=== PATIENT | female | born 1940 | race Caucasian/White ===

== ENCOUNTER 2017-10-18 08:23 | Day surgery (SDC) | payer MEDICARE, OTHER ==
[~2017-10-18 08:23] MED LIST: LIDOCAINE 1% PF 2 ML VIAL. ID; MORPHINE SULFATE 2 MG/ML DISP.SYRIN. IV; ONDANSETRON PF 4 MG/2 ML VIAL. IV; PROCHLORPERAZINE 10 MG/2 ML VIAL. IV; fentaNYL PF VIAL 100 MCG/2 ML VIAL IV
[2017-10-18] MEDS: IV RINGERS,LACTATED 1000ML 1,000 ML IV (09:15)
[2017-10-18] MEDS ORDERED: PROPOFOL 20 ML IV (09:16)
[2017-10-18] MEDS ORDERED: FAMOTIDINE 20 MG/2 ML VIAL (09:16)
[2017-10-18] MEDS ORDERED: LIDOCAINE 2% PF Vial for OR 5 ML VIAL. (09:16)
[2017-10-18] MEDS ORDERED: ONDANSETRON PF 4 MG/2 ML VIAL. (09:16)
[2017-10-18] MEDS ORDERED: DEXAMETHASONE SOD PHOS 20 MG/5 ML VIAL. (09:16)
[2017-10-18] MEDS ORDERED: fentaNYL PF VIAL 100 MCG/2 ML VIAL (09:16)
[2017-10-18] MEDS ORDERED: ROCURONIUM 50 MG/5 ML VIAL. (09:16)
[2017-10-18] MEDS ORDERED: NEOSTIGMINE METHYLSULFATE 5 MG/5 ML SYRINGE. (11:32)
[2017-10-18] MEDS ORDERED: GLYCOPYRROLATE 1 MG/5 ML VIAL. (11:32)
[2017-10-18] MEDS: BUPIVACAINE-EPI 0.25%-1:200000 50 ML VIAL. (11:39)
[2017-10-18] MEDS ORDERED: DESFLURANE 61 TO 120 MINUTES IH (11:45)
[2017-10-18] MEDS ORDERED: ceFAZolin 2GM PREMIX 2 GM/50 ML BAG IV (12:00)
[2017-10-18] MEDS: ALBUTEROL SULFATE 2.5 MG/3 ML NEBU. NEB (13:05)
[2017-10-18] MEDS: HYDROcodone/APAP 7.5/325MG 1 TAB TABLET PO (14:30)
== END 2017-10-18 14:45 | disposition home or self-care (01) ==
LOC: SURG 08:23
DX: M70.62 Trochanteric bursitis, left hip (principal); E78.00 Pure hypercholesterolemia, unspecified; I10 Essential (primary) hypertension; Z90.49 Acquired absence of other specified parts of digestive tract; M16.12 Unilateral primary osteoarthritis, left hip; E89.0 Postprocedural hypothyroidism; F17.200 Nicotine dependence, unspecified, uncomplicated; Z88.8 Allergy status to other drugs, medicaments and biological substances; Z96.651 Presence of right artificial knee joint; Z98.890 Other specified postprocedural states
CPT/HCPCS: 29999; 94640; 97116-GP; 97162-GP; 97530-GP; A7015; G8978-CJ-GP; G8979-CJ-GP; G8980-CJ-GP; J0690; J1100; J2001; J2405; J2704; J2710; J3010; J3490; J7613; S0028

== ENCOUNTER 2018-01-23 12:24 | Emergency (ER) | payer MEDICARE, OTHER ==
[~2018-01-23] VITALS: Ht 160 cm; Wt 93.4 kg
[~2018-01-23 12:24] MED LIST changes: +ACET500T68 PO; +AMLO5TAB7 PO; +ASPI-630 PO; +CETI10TA22 PO; +CYAN10005 PO; +DICL100G18 TP; +HYDR-965 PO; +HYDR25TA9 PO; +ISOS60TA2 PO; +LATA2.5D3 OU; +LEVO50TA5 PO; -LIDOCAINE 1% PF 2 ML VIAL. ID; +METO25TA4 PO; -MORPHINE SULFATE 2 MG/ML DISP.SYRIN. IV; -ONDANSETRON PF 4 MG/2 ML VIAL. IV; +PRAV40TA2 PO; -PROCHLORPERAZINE 10 MG/2 ML VIAL. IV; +TIZA4TAB PO; +TRAM50TA PO; +VITA1TAB19 PO; -fentaNYL PF VIAL 100 MCG/2 ML VIAL IV
[2018-01-23 13:00] VITALS: BP 175/80
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
--- NOTE | 2018-01-23 16:13 | RAD ---
EXAM: Left knee, 3 views. HISTORY: Pain. COMPARISON: None. FINDINGS: 3 views left knee are obtained. There is no fracture, dislocation or subluxation. There is slight enthesopathy along the superior patella. There is no joint effusion. There are small prepatellar soft tissue calcifications. IMPRESSION: No acute osseous finding. Electronically signed by: Kari Kaba MD (01/23/2018 4:09 PM) [facility]
--- NOTE | 2018-01-23 16:23 | RAD ---
EXAM: Chest, 2 views. HISTORY: Pain. COMPARISON: 09/23/2014 FINDINGS: 2 views chest are obtained. There is stable elevation of the right hemidiaphragm with suspected right lower lobe compressive atelectasis. There is no infiltrate, pleural effusion or pneumothorax. There is stable cardiomegaly. There is a cardiac pacemaker with leads in expected position. There is stable central pulmonary artery prominence. IMPRESSION: 1. Stable elevation of the right hemidiaphragm and suspected right lower lobe compressive atelectasis. 2. Stable cardiomegaly. Electronically signed by: Kari Kaba MD (01/23/2018 4:19 PM) [place] [id number]
--- NOTE | 2018-01-23 17:39 | RAD ---
CT scan of the chest without contrast 01/23/2018 CLINICAL HISTORY: Shortness of breath. Low oxygen saturation. TECHNIQUE: Unenhanced, contiguous, 5 mm axial sections were obtained through the chest and upper abdomen. FINDINGS: Comparison study is dated 11/01/2011. A left-sided pacemaker is seen extending to the right atrium and right ventricle of the heart. The cardiac silhouette is mildly enlarged. Atherosclerotic calcification of the thoracic aorta and its branches is noted. The thoracic aorta is tortuous but tapers normally. Small likely reactive mediastinal lymph nodes are seen, unchanged. The right lobe of the thyroid gland appears enlarged and slightly heterogeneous. It is incompletely evaluated on this study. Elevation of the right hemidiaphragm is again noted. Subsegmental atelectasis is seen involving the right middle lobe. Minimal dependent subsegmental atelectasis is seen involving both lower lobes. A 5 mm faint nodular opacity is seen involving the medial posterior aspect of the right upper lobe. This is unchanged. No area of consolidation is seen. No pneumothorax or pleural effusion is noted. Images through the upper abdomen demonstrate atrophy of the cortex of the right kidney with moderate to severe right hydronephrosis. This is incompletely evaluated on this study. Surgical clips are seen within the gallbladder fossa consistent with a cholecystectomy. Atherosclerotic calcification of the abdominal aorta and its branches is seen. IMPRESSION: No acute abnormality is seen. Electronically signed by: Iftikhar Felder MD (01/23/2018 5:35 PM) [facility]
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
--- NOTE | 2018-01-23 20:50 | RAD ---
Three-view bilateral hand radiographs 01/23/2018 CLINICAL HISTORY: Fall with injury to both hands. Left hand bruising and swelling. PA, lateral and oblique digital radiographs of both hands were obtained. No fracture or dislocation of either hand is seen. Mild to moderate degenerative changes are seen throughout the interphalangeal joints of both hands. Moderate degenerative changes are seen involving the first MCP joints of both hands. IMPRESSION: No fracture or dislocation of either hand is seen. Electronically signed by: Iftikhar Felder MD (01/23/2018 8:46 PM) [facility]
== END 2018-01-23 18:10 | disposition home or self-care (01) ==
LOC: ER 12:24
DX: J98.11 Atelectasis (principal); S60.222A Contusion of left hand, initial encounter; S80.212A Abrasion, left knee, initial encounter; S00.81XA Abrasion of other part of head, initial encounter; I10 Essential (primary) hypertension; Z88.8 Allergy status to other drugs, medicaments and biological substances; W11.XXXA Fall on and from ladder, initial encounter; Y93.89 Activity, other specified; Y92.89 Other specified places as the place of occurrence of the external cause; Y99.8 Other external cause status
CPT/HCPCS: 70450; 70486; 71046; 71250; 72125; 72170; 73130; 73562; 99284